=== PATIENT | male | born 1970 | race Caucasian/White ===

== ENCOUNTER 2018-12-14 11:53 | Emergency (ER) | payer OTHER ==
[~2018-12-14] VITALS: Ht 165.1 cm; Wt 95.3 kg
[2018-12-14] MEDS ORDERED: HYDROCODONE/APAP 5/325MG 1 EACH TABLET ONE (12:05)
[2018-12-14] MEDS ORDERED: HYDROCODONE/APAP 5/325MG 1 EACH TABLET PO ONE (12:30)
[2018-12-14] MEDS ORDERED: TDAP [DIPH/PERTUSSIS/TET] 0.5 ML VIAL IM ONE ×2 (13:00)
--- NOTE | 2018-12-14 13:04 | NUR ---
PATIENT IN NO RESPIRATORY DISTRESS. DENIES PAIN OR DISCOMFORT AT THIS TIME. Patient discharged to home in stable condition. Written and verbal after care instructions given. Patient verbalizes understanding of instruction. at bedside, instructed patient not to drive.
[2018-12-14 13:09] VITALS: BP 144/90
== END 2018-12-14 13:23 | disposition home or self-care (01) ==
LOC: ER 11:55
DX: S22.32XA Fracture of one rib, left side, initial encounter for closed fracture (principal); S00.211A Abrasion of right eyelid and periocular area, initial encounter; H11.31 Conjunctival hemorrhage, right eye; I10 Essential (primary) hypertension; W18.09XA Striking against other object with subsequent fall, initial encounter; Y93.89 Activity, other specified; Y92.89 Other specified places as the place of occurrence of the external cause; Y99.8 Other external cause status
CPT/HCPCS: 71100; 90471; 90715; 99283; A6402